=== PATIENT | male | born 1965 | race African-American/Black ===

== ENCOUNTER 2016-11-19 01:00 | Emergency (ER) | payer MEDICAID ==
[~2016-11-19] VITALS: Ht 180.3 cm; Wt 98.4 kg
[~2016-11-19 01:00] MED LIST: NAPROSYN500 M1 ORAL; NKM
[2016-11-19 01:13] VITALS: BP 144/80
[2016-11-19] MEDS ORDERED: AZITHROMYCIN250 MG ORAL (01:39)
[2016-11-19] MEDS ORDERED: HYDROCODON-ACE1 EA15 ORAL (01:39)
[2016-11-19] MEDS ORDERED: IBUPROFEN600 MG ORAL (01:39)
--- NOTE | 2016-11-19 01:39 | Emergency Room Report ---
History of Present Illness General Chief Complaint: Toothache Source: Patient Present Illness HPI Is a 51-year-old male with no past medical history. He presents with chief complaint of dental pain. Localized to the right jaw area. Onset tonight. Pain is 10 out of 10. Radiating to the ear. No fever chills but no swelling. Had pain before but never this severe. No chest pain. No shortness of breath. No exertional component. Allergies: Coded Allergies: PENICILLINS (Verified Allergy, Unknown, 11/19/16) Patient History Past Medical History: none, see triage record, old chart reviewed Past Surgical History: none Pertinent Family History: none Social History: Reports: smoking Immunizations: other Reviewed Nursing Documentation: PMH: Agreed, PSxH: Agreed Nursing Documentation-PMH Past Medical History: No Stated History Review of Systems Eye: Denies: blurred vision, eye pain ENT: Denies: ear pain, nose congestion, throat swelling Respiratory: Denies: cough, shortness of breath Cardiovascular: Denies: chest pain, palpitations Gastrointestinal: Denies: abdominal pain, diarrhea, nausea, vomiting Musculoskeletal: Denies: back pain, joint pain Skin: Denies: rash Neurological: Denies: headache, numbness Endocrine: Denies: increased thirst, increased urine Hematologic/Lymphatic: Denies: easy bruising All Other Systems: negative except mentioned in HPI Physical Exam Vital Signs Date Time Temp Pulse Resp B/P Pulse Ox O2 Delivery O2 Flow Rate FiO2 11/19/16 01:06 97.3 70 16 144/80 99 11/19/16 01:13 Room Air vitals unremarkable Sp02 EP Interpretation: reviewed, normal General Appearance: well appearing, no apparent distress, alert Head: normocephalic, atraumatic Eyes: bilateral eye EOMI, bilateral eye PERRL ENT: hearing grossly normal, normal pharynx, other - Poor dentition. Mild tenderness over the second molar right lower jaw. No abscess. Neck: full range of motion, supple, no meningismus Respiratory: chest non-tender, lungs clear, normal breath sounds Cardiovascular #1: regular rate, rhythm, no murmur Gastrointestinal: normal bowel sounds, non tender, no mass, no organomegaly, no bruit, non-distended Musculoskeletal: back normal, gait/station normal, normal range of motion Psychiatric: mood/affect normal Skin: warm/dry Procedures Additional Procedure Procedure Narrative procedure: Dental block Indication: Dental pain Description: I injected the right inferior alveolar nerve with 2 mL of 1% lidocaine without epinephrine. patient has good pain relief. No complication. Medical Decision Making Diagnostic Impression: Primary Impression: Toothache ER Course Patient present with dental pain. No abscess. No evidence of anginal equivalent pain. No evidence of Hilton angina. We'll discharge home. Last Vital Signs Date Time Temp Pulse Resp B/P Pulse Ox O2 Delivery O2 Flow Rate FiO2 11/19/16 01:13 97.3 70 16 144/80 99 Room Air Status: improved Disposition: HOME, SELF-CARE Condition: Stable Scripts Azithromycin* (ZITHROMAX*) 250 Mg Tablet 250 MG ORAL DAILY, #6 TAB 0 Refills Take two tablets by mouth today, then take one tablet by mouth daily for four days Prov: BELINDA ROCHA M.D. 11/19/16 Ibuprofen* (MOTRIN*) 600 Mg Tablet 600 MG ORAL THREE TIMES A DAY, #30 TAB 0 Refills Prov: BELINDA ROCHA M.D. 11/19/16 Hydrocodone/Acetaminophen 5-325* (HYDROCODONE/ACETAMINOPHEN 5-325*) 1 Each Tablet 1 TAB ORAL Q6H Y for For Pain, #10 TAB 0 Refills Prov: BELINDA ROCHA M.D. 11/19/16 Patient Instructions: Dental Pain Additional Instructions: Followup with dentist SHEILA. Return if worse. BELINDA ROCHA M.D. Nov 19, 2016 01:39
[2016-11-19 01:45] VITALS: BP 144/80
== END 2016-11-19 02:00 | disposition home or self-care (01) ==
LOC: EMR 01:34
DX: K08.89 Other specified disorders of teeth and supporting structures (principal); F17.200 Nicotine dependence, unspecified, uncomplicated; Z88.0 Allergy status to penicillin
CPT/HCPCS: 64402; 99284; Z7502